=== PATIENT | male | born 1930 | race Caucasian/White ===

== ENCOUNTER → 2018-09-06 | Outpatient (CLI) | payer OTHER ==
[~2018-09-06] VITALS: Ht 180.3 cm; Wt 89.8 kg
[~2018-09-06] MED LIST: ALLOPURINOL 10100 M1 PO; ARICEPT 5 MG TAB5 MG PO; ASPIR 8181 MG PO; CENTRUM SILVER1 EAC2 PO; GLIPIZIDE5 MG PO; GLUCOPHAGE XR750 MG PO; METFORMIN HCL850 MG PO; NAMENDA 10 MG T10 MG PO; OCUVITE SOFTGE1 EAC1 PO; OMEGA-31000 M1 PO; PRILOSEC 20 MG20 MG PO; SERTRALINE HCL50 MG PO; ZOLOFT50 MG PO
--- NOTE | ~2018-09-06 | P ---
[facility] [place] [address] [place] [address] PROCEDURE REPORT Name: BRIJESH ARMIJO Room #: [facility] [employer] [facility]#: [id number] Admission: 09/06/18 Attend Phys: Brijesh Mccurdy MD Discharge: Date of : 32 Report #: [id number] THIS REPORT FOR: //name// CC: Brijesh HAWKINS MD DATE OF SERVICE: 09/06/2018 BRIEF HISTORY: The patient is an 87-year-old male with a history of colon polyps. He has had recent drop in hemoglobin. PREOPERATIVE DIAGNOSIS: History of colon polyps and anemia. POSTOPERATIVE DIAGNOSES: 1. Diminutive polyp, proximal ascending colon x 2. 2. Diverticulosis coli, right and left colon. 3. Moderate internal hemorrhoids. MEDICATIONS: Deep sedation with propofol per anesthesia. SPECIMEN: Ascending colon polyps x 2. ESTIMATED BLOOD LOSS: 3 mL. PROCEDURE: Colonoscopy to cecum and terminal ileum with biopsy. FINDINGS: Prior to propofol sedation, procedure of colonoscopy discussed with the patient as well as potential risks and its complications. He indicates he understands and desires to proceed. DESCRIPTION OF PROCEDURE: With the patient in left lateral decubitus position, digital examination was completed, which revealed no abnormalities. Subsequently, the Olympus video colonoscope was introduced in the rectum, advanced under direct vision to the cecum. Done with minimal difficulty. The cecum was identified by the ileocecal valve and the appendiceal orifice. I was able to visualize the distal segment of terminal ileum, which was inspected and noted to be unremarkable. At that point, the scope was slowly withdrawn and careful circumferential views obtained including retroflexion of the scope in the ascending colon. Upon slow withdrawal of the scope, the prep was good. The mucosa was within normal limits, normal vascular pattern, normal light reflex. There were some limitations of prep in the proximal colon, but with irrigation and suctioning, we were able to obtain a reasonably good prep. As we withdrew the scope, the mucosa was within normal limits, normal vascular pattern and normal light reflex. The proximal ascending colon, 2 diminutive polyps were seen and removed by biopsy. The scope was further withdrawn. As withdrew the [facility] [address] [place] [address] PROCEDURE REPORT Name: BRIJESH ARMIJO Room #: [facility] [employer] [facility]#: [id number] Admission: 09/06/18 Attend Phys: Brijesh Mccurdy MD Discharge: Date of : 31 Report #: [id number] scope through the colon, there were noted to be scattered diverticula in proximal colon without endoscopic evidence of diverticulitis. He had diverticula scattered throughout the entire colon, was more prominent in the sigmoid colon and the proximal colon. Again, no additional neoplastic lesions were seen. Bleeding lesions were not seen. Vascular ectasias were not seen. The scope was withdrawn in the rectum, no abnormalities were seen. Upon retroflexion, moderately large internal hemorrhoids were seen. Scope was withdrawn. The patient tolerated the procedure well. CONDITION OF THE PATIENT UPON DISCHARGE: Following procedure, the patient drowsy, aroused, conversant and will be discharged home when fully ambulatory. INSTRUCTIONS TO THE PATIENT AND FAMILY AT THE TIME OF DISCHARGE: No neoplastic lesions were seen today. We will follow up on pathology, but at this point in life, further routine colonoscopy is not likely the benefit to the patient. As far as his anemia, I do not see any obvious bleeding lesions or suspected bleeding lesions. If there remains concern, further evaluation with an M2 small bowel capsule study could be considered. He will return to care of Dr. Brijesh Kilgore and return to see me as needed. Last colonoscopy was about 5 years ago. Withdrawal time from cecum was 16 minutes 22 seconds. <ELECTRONICALLY SIGNED> By: Brijesh Mccurdy MD 09/07/18 0732 1114 0022 Brijesh Mccurdy MD /nt
--- NOTE | ~2018-09-06 | P ---
[facility] [place] [address] PROCEDURE REPORT Name: ARMIJOBRIJESH Demi Room #: REG [facility]#: [id number] Admission: 09/06/18 Attend Phys: Brijesh Mccurdy MD Discharge: Date of : 31 Report #: [id number] THIS REPORT FOR: //name// CC: Brijesh HAWKINS MD DATE OF SERVICE: 09/06/2018 BRIEF HISTORY: The patient is an 87-year-old male who presents with anemia. He has had a recent drop in hemoglobin. PREOPERATIVE DIAGNOSIS: Anemia. POSTOPERATIVE DIAGNOSES: 1. A 3-cm sliding type hiatus hernia. 2. Diffuse gastritis. 3. A Schatzki ring. MEDICATIONS: Deep sedation with propofol per anesthesia. SPECIMENS: 1. Biopsies of small bowel, rule out celiac disease. 2. Biopsies of gastritis. ESTIMATED BLOOD LOSS: 3 mL. PROCEDURE: EGD with a biopsy. FINDINGS: Prior to propofol sedation, procedure of upper endoscopy discussed with the patient as well as potential risks and its complications. He indicates he understands and desires to proceed. DESCRIPTION OF PROCEDURE: With the patient in left lateral decubitus position, the Olympus video endoscope was inserted in the cervical esophagus under direct vision without difficulty. Examination of this organ through its entire length revealed normal esophageal mucosa down the squamocolumnar junction. Distal esophagus was mildly tortuous. No mass lesions were seen. At the GE junction, a moderate Schatzki ring was seen. Scope was advanced and about a 3-cm sliding type hiatus hernia was encountered. Mucosa at hernia was normal. No Omar ulcers or erosions were seen associated with a hiatus hernia. The scope was advanced fully into the stomach, which was examined on end view as well as retroflexed views. There was a diffuse chronic appearing gastritis without ulcers, erosions or bleeding. Multiple biopsies were obtained. Upon retroflexion, the hiatus hernia was seen. The pylorus, duodenal bulb and postbulbar duodenal sweep were inspected and noted to be unremarkable. Due to [facility] [address] [place] [address] PROCEDURE REPORT Name: BRIJESH ARMIJO Room #: REG [facility]#: [id number] Admission: 09/06/18 Attend Phys: Brijesh Mccurdy MD Discharge: Date of : 31 Report #: [id number] his anemia, multiple small bowel biopsies were obtained. At that point, the scope was slowly withdrawn and careful circumferential views confirmed the above findings. The patient tolerated procedure well. Subsequently, he was dilated with passage of 50-[place] Clark dilator without resistance. CONDITION OF THE PATIENT UPON DISCHARGE: Following procedure, the patient was drowsy, was then prepared for colonoscopy. INSTRUCTIONS TO THE PATIENT AND FAMILY AT THE TIME OF DISCHARGE: Will follow up on biopsies obtained today. I do not see an obvious bleeding lesion. Proceed with colonoscopy at this time for further evaluation of his anemia. <ELECTRONICALLY SIGNED> By: Brijesh Mccurdy MD 09/07/18 0732 1045 0013 Brijesh Mccurdy MD /nt
--- NOTE | ~2018-09-06 | PATH ---
[facility] [place] [address] [place] [address] PATHOLOGY RPT PROCEDURE Name: BRIJESH ARMIJO Room #: REG [facility] Brendan.#: [id number] Admission: 09/06/18 Date of : 31 Discharge: Report #: [id number] Path Case #: [id number] [facility] Accession Number: [id number] . 01 Material submitted: . PART A: SMALL BOWEL BIOPSIES R/O CELIAC DISEASE PART B: GASTRITIS BIOPSY R/O H PYLORI PART C: PROXIMAL ASCENDING COLON POLYP X2 . 01 Clinical history: . Pre-OP DX: Anemia, Hx colon polyps, family HX colon cancer Post-OP DX: Gastritis, hiatal hernia, Schatzki's ring, diverticulosis, colon polyps, internal hemorrhoids . 02 Diagnosis: A. Small intestinal mucosa "small bowel biopsy": - No obvious diagnostic changes. - There is no evidence of acute cryptitis, granulomas, adenomatous change, sprue like changes or malignancy. . B. Gastric biopsy "gastric biopsy": - Mild chronic gastritis arising in the background of chronic reactive gastropathy. - Immunoperoxidase stain is focally positive suggestive of few Helicobacter pylori. . C. Colonic mucosa "proximal ascending colon polyp x 2): - Fragments of tubular adenoma. - There is no evidence of high-grade dysplasia or malignancy. (SHA:[facility] 09/07/2018) QTP/09/07/2018 . 02 Electronically signed: . Torin Gonzalez MD, Pathologist NPI- [id number] . 01 Gross description: . A. Received in formalin labeled "Brijesh Armijo, small bowel biopsies, rule out celiac," are 5 segments of ortez soft tissue measuring 1.5 x 0.7 x 0.2 cm in aggregate dimensions and ranging from 0.3 to 0.4 cm in maximum dimension. The specimen is submitted entirely in cassette A1. . B. Received in formalin labeled "Brijesh Armijo, gastritis biopsy, rule out H. pylori," are 3 segments of ortez soft tissue measuring 1.2 x 0.8 x 0.2 cm in aggregate dimensions and ranging from 0.5 to 0.6 cm in maximum dimension. The specimen is submitted entirely in cassette B1. . [facility] [place] [place] [address] [place] [address] PATHOLOGY RPT PROCEDURE Name: ALEKSANDERBRIJESH Simms Room #: REG [facility] Mike#: [id number] Admission: 09/06/18 Date of : 31 Discharge: Report #: [id number] Path Case #: [id number] C. Received in formalin labeled "Brijesh Armijo, proximal ascending colon polyp BX x2," are 3 segments of ortez soft tissue measuring 0.6 x 0.5 x 0.3 cm in aggregate dimensions and ranging from 0.3 to 0.4 cm in maximum dimension. The specimen is submitted entirely in cassette C1. (TSD; 09/06/2018) TOB/TOB . 02 Pathologist provided ICD-10: K29.50, K31.9, D12.2 . 02 CPT . 541329, 525170, 324994, G36769 Specimen Comment: A courtesy copy of this report has been sent to Specimen Comment: [phone], , . Specimen Comment: Report sent to , DR HAWKINS / DR WANG Specimen Comment: A duplicate report has been generated due to demographic updates. Performed at: 01 [facility] [address] [facility] [address], [place] [id number] MD Blaise Chiu MD Phone: [phone] Performed at: [address] [id number] MD Nicolle Harrison MD Phone: [phone]
== END | disposition home or self-care (01) ==
LOC: GI 08:29
DX: D12.2 Benign neoplasm of ascending colon (principal); K57.30 Diverticulosis of large intestine without perforation or abscess without bleeding; K64.8 Other hemorrhoids; K29.50 Unspecified chronic gastritis without bleeding; K31.9 Disease of stomach and duodenum, unspecified; K22.2 Esophageal obstruction; B96.81 Helicobacter pylori [H. pylori] as the cause of diseases classified elsewhere; K44.9 Diaphragmatic hernia without obstruction or gangrene; K21.9 Gastro-esophageal reflux disease without esophagitis; E11.9 Type 2 diabetes mellitus without complications; F02.80 Dementia in other diseases classified elsewhere, unspecified severity, without behavioral disturbance, psychotic disturbance, mood disturbance, and anxiety; G30.9 Alzheimer's disease, unspecified; F32.9 Major depressive disorder, single episode, unspecified; F41.9 Anxiety disorder, unspecified; M10.9 Gout, unspecified; Z86.010 Personal history of colon polyps; Z79.82 Long term (current) use of aspirin; Z87.891 Personal history of nicotine dependence; Z95.1 Presence of aortocoronary bypass graft; Z96.653 Presence of artificial knee joint, bilateral; Z96.649 Presence of unspecified artificial hip joint; Z98.41 Cataract extraction status, right eye; Z98.42 Cataract extraction status, left eye; Z79.899 Other long term (current) drug therapy; Z98.890 Other specified postprocedural states
CPT/HCPCS: 62110; 62900